=== PATIENT | female | born 1955 | race Caucasian/White ===

== ENCOUNTER 2020-11-15 12:58 | Outpatient (CLI) | payer MEDICARE, OTHER | END 2020-11-15 12:59 | disposition home or self-care (01) | LOC: CSHMAMMO 12:58 | PROVIDERS: ATTEND Obstetrics & Gynecology | DX: N63.10 Unspecified lump in the right breast, unspecified quadrant (principal); R92.8 Other abnormal and inconclusive findings on diagnostic imaging of breast | CPT/HCPCS: 76642; 77066; G0279 ==

== ENCOUNTER 2021-01-08 16:24 | Outpatient (CLI) | payer MEDICARE, OTHER ==
[2021-01-09 01:15] LABS: SARS-CoV-2 PCR by NAA Not Detected (NotDetected)
== END 2021-01-08 16:25 | disposition home or self-care (01) ==
LOC: CSHLAB 16:24
PROVIDERS: ATTEND Surgery
DX: Z20.822 Contact with and (suspected) exposure to COVID-19 (principal); C50.011 Malignant neoplasm of nipple and areola, right female breast; Z17.0 Estrogen receptor positive status [ER+]; Z80.3 Family history of malignant neoplasm of breast
CPT/HCPCS: 87635; U0003; U0005

== ENCOUNTER 2021-08-08 12:43 | Outpatient (CLI) | payer MEDICARE, OTHER | END 2021-08-08 12:44 | disposition home or self-care (01) | LOC: CSHMAMMO 12:43 | PROVIDERS: ATTEND Surgery | DX: Z08 Encounter for follow-up examination after completed treatment for malignant neoplasm (principal); Z85.3 Personal history of malignant neoplasm of breast; Z98.890 Other specified postprocedural states | CPT/HCPCS: 77065; G0279 ==

== ENCOUNTER 2022-01-30 12:40 | Outpatient (CLI) | payer MEDICARE, OTHER | END 2022-01-30 12:41 | disposition home or self-care (01) | LOC: CSHMAMMO 12:40 | PROVIDERS: ATTEND Surgery | DX: Z08 Encounter for follow-up examination after completed treatment for malignant neoplasm (principal); Z85.3 Personal history of malignant neoplasm of breast; Z17.0 Estrogen receptor positive status [ER+] | CPT/HCPCS: 77066; G0279 ==

== ENCOUNTER 2024-03-18 12:41 | Outpatient (CLI) | payer MEDICARE, OTHER | END 2024-03-18 12:42 | disposition home or self-care (01) | LOC: CSHMAMMO 12:41 | PROVIDERS: ATTEND Internal Medicine Hematology & Oncology | DX: Z08 Encounter for follow-up examination after completed treatment for malignant neoplasm (principal); Z85.3 Personal history of malignant neoplasm of breast | CPT/HCPCS: 77066; G0279 ==

== ENCOUNTER 2024-08-18 12:45 | Outpatient (CLI) | payer MEDICARE, OTHER | END 2024-08-18 12:46 | disposition home or self-care (01) | LOC: CSHCT 12:45 | PROVIDERS: ATTEND Internal Medicine | DX: R41.3 Other amnesia (principal); R26.9 Unspecified abnormalities of gait and mobility; N39.41 Urge incontinence; R93.0 Abnormal findings on diagnostic imaging of skull and head, not elsewhere classified | CPT/HCPCS: 70450 ==